=== PATIENT | female | born 1965 ===

== ENCOUNTER 2017-12-31 12:45 | Inpatient (IN) | payer OTHER ==
[~2017-12-31] VITALS: Ht 157.5 cm; Wt 108.9 kg
[2017-12-31] MEDS ORDERED: DIOVAN HCT 3201 EACH PO (14:49)
[2017-12-31] MEDS ORDERED: CATAFLAN PO (14:49)
[2017-12-31] MEDS ORDERED: GLIMEPIRIDE4 MG PO (14:49)
== END 2018-01-23 16:13 | DRG 743 ==
LOC: SURH 01-03 12:45 → O/R 01-21 05:27 → SURG-SUITE 01-21 05:27 → SURH 01-21 12:45 → OB/GYN 01-21 13:32 → SURG-SUITE 01-21 13:56
PROVIDERS: Obstetrics & Gynecology Gynecologic Oncology
PROC: 0UT6FZZ Resection of Left Fallopian Tube, Via Natural or Artificial Opening With Percutaneous Endoscopic Assistance (ICD-10-PCS; 2018-01-21)
PROC: 0TN70ZZ Release Left Ureter, Open Approach (ICD-10-PCS; 2018-01-21)
PROC: 0DNN0ZZ Release Sigmoid Colon, Open Approach (ICD-10-PCS; 2018-01-21)
PROC: 0UT1FZZ Resection of Left Ovary, Via Natural or Artificial Opening With Percutaneous Endoscopic Assistance (ICD-10-PCS; principal; 2018-01-21 05:15)
DX: D27.1 Benign neoplasm of left ovary (principal)